=== PATIENT | male | born 1980 | race Caucasian/White ===

== ENCOUNTER → 2018-03-12 | Outpatient (CLI) | payer OTHER ==
--- NOTE | 2018-03-12 15:17 | KCIC ---
Examination: MRI of the right knee without contrast HISTORY: History of medial right knee pain, heard a pop while running COMPARISON: None available TECHNIQUE: Multiplanar, multisequence MR imaging of the right knee was performed without contrast FINDINGS: The anterior cruciate ligament, posterior cruciate ligament are intact. The medial meniscus, lateral meniscus appears intact. The medial collateral ligament, lateral collateral ligamentous complex including the fibular collateral ligament, biceps femoris tendon, popliteus tendon appear intact. The extensor mechanism is intact. The medial, lateral retinaculum appear intact. Minimal knee joint effusion. Small popliteal cyst. The cartilage in the medial, lateral, patellofemoral compartments grossly appears unremarkable. IMPRESSION: 1. Small popliteal cyst. 2. Minimal knee joint effusion. Electronically signed by: Deep Pate MD (03/12/2018 3:13 PM) [id number]
== END | disposition home or self-care (01) ==
LOC: KCIC MRI 14:08
PROVIDERS: ATTEND Registered Nurse
DX: M71.21 Synovial cyst of popliteal space [Baker], right knee (principal); M25.461 Effusion, right knee
CPT/HCPCS: 73721